=== PATIENT | female | born 1980 | race African-American/Black ===

== ENCOUNTER 2022-01-14 17:24 | Emergency (ER) | payer SELFPAY ==
[2022-01-14] MEDS ORDERED: Ketorolac Tromethamine 30 MG/ML VIAL ONE (18:54)
[2022-01-14] MEDS ORDERED: Dexamethasone 10 MG/ML VIAL ONE (18:54)
[2022-01-14] MEDS ORDERED: HYDROcodone/Acetaminophen 5/325 mg Tablet ONE (18:55)
== END 2022-01-14 19:20 | disposition home or self-care (01) ==
LOC: CSHERS 17:24
DX: M54.50 Low back pain, unspecified (principal); G89.29 Other chronic pain
CPT/HCPCS: 96372; 99283; J1100; J1885